=== PATIENT | female | born 1995 | race African-American/Black ===

== ENCOUNTER 2017-06-13 10:10 | Emergency (ER) | payer OTHER, MEDICAID ==
[~2017-06-13] VITALS: Ht 162.6 cm; Wt 58.0 kg
[2017-06-13 10:17] VITALS: BP 126/66; PULSE 86; RESP 20; TEMP 97.9; O2SAT 100
[2017-06-13] MEDS ORDERED: ACETAMINOPHEN 325 MG TAB PO ONE (11:15)
[2017-06-13] MEDS ORDERED: IBUPROFEN 600 MG TAB PO ONE (11:15)
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
[2017-06-13] MEDS ORDERED: IBUP-232 PO (11:56)
== END 2017-06-13 12:10 | disposition home or self-care (01) ==
LOC: NEPD 10:10
DX: S40.011A Contusion of right shoulder, initial encounter (principal); V49.59XA Passenger injured in collision with other motor vehicles in traffic accident, initial encounter; Y92.410 Unspecified street and highway as the place of occurrence of the external cause
CPT/HCPCS: 73030; 99283